=== PATIENT | female | born 1975 | race Caucasian/White ===

== ENCOUNTER 2017-02-11 15:45 | Emergency (ER) | payer OTHER | END 2017-02-11 16:22 | disposition home or self-care (01) | LOC: ER 15:45 | DX: L02.411 Cutaneous abscess of right axilla (principal); I10 Essential (primary) hypertension; F17.200 Nicotine dependence, unspecified, uncomplicated; Z90.710 Acquired absence of both cervix and uterus; Z79.899 Other long term (current) drug therapy; Z88.0 Allergy status to penicillin; Z88.5 Allergy status to narcotic agent ==